=== PATIENT | male | born 1970 | race Caucasian/White ===

== ENCOUNTER 2018-11-27 07:09 | Inpatient (IN) | payer SELFPAY ==
--- NOTE | 2018-11-27 07:54 | EDPHY ---
H & P Stated Complaint: altered mental status Time Seen by Provider: 11/27/18 07:21 HPI/ROS: CHIEF COMPLAINT: "I am hungry and I can't think well" Limitations: Poor historian, history through EMS HISTORY OF PRESENT ILLNESS: 47-year-old male with schizoaffective disorder presents with acute psychosis. A friend called 911 because of increased agitation and paranoia over the past several days. Not taking his usual psychiatric medications. On EMS arrival, rambling speech and tangential thought process present. He was placed on an M1 hold for acute psychosis. Recent URI, resolved. No suicidal or homicidal ideation. Pt declines to answer most questions. REVIEW OF SYSTEMS: Unable to obtain. - Personal History Current Tetanus/Diphtheria Vaccine: Unsure Current Tetanus Diphtheria and Acellular Pertussis (TDAP): Unsure - Medical/Surgical History Other PMH: Schizaffective and bipolar - Social History Smoking Status: Unknown if ever smoked Alcohol Use: Sober Drug Use: None - Physical Exam Exam: General Appearance: Alert, rambling speech, well-appearing Eyes: Pupils equal and round, no conjunctival pallor or injection ENT, Mouth: Mucous membranes moist Neck: Normal inspection Respiratory: Lungs are clear to auscultation Cardiovascular: Regular rate and rhythm Gastrointestinal: Abdomen is soft and nontender Neurological: Alert, nonfocal exam Skin: Warm and dry Extremities: Abrasion left elbow, no swelling Psychiatric: Tangential thought process Constitutional: Initial Vital Signs Blood Pressure 120/78 11/27/18 07:22 O2 Delivery Mode Room Air Allergies/Adverse Reactions: No Known Allergies Allergy (Unverified 11/27/18 07:27) Home Medications: Medication Instructions Recorded NK [No Known Home Meds] 11/27/18 Medical Decision Making ED Course/Re-evaluation: This patient presents on an M1 hold for acute psychosis. Old medical record reviewed; no prior visits at [facility]. Medically cleared for mental health evaluation. 11am: seen by , accepted to 3N by Anibal Kelley for acute psychosis. The patient was calm and cooperative throughout his emergency department stay. Differential Diagnosis: Differential diagnosis includes though it is not limited to suicidal ideation, overdose, acute psychosis, self-injury, alcohol withdrawal. - Data Points Laboratory Results: Laboratory Results 11/27/18 08:35 11/27/18 08:35 11/27/18 11/27/18 11/27/18 09:00 08:35 08:35 WBC 10.38 10^3/uL H 10^3/uL (3.80-9.50) RBC 5.16 10^6/uL 10^6/uL (4.40-6.38) Hgb 15.8 g/dL g/dL (13.7-17.5) Hct 45.3 % % (40.0-51.0) MCV 87.8 fL fL (81.5-99.8) MCH 30.6 pg pg (27.9-34.1) MCHC 34.9 g/dL g/dL (32.4-36.7) RDW 13.2 % % (11.5-15.2) Plt Count 323 10^3/uL 10^3/uL (150-400) MPV 8.2 fL L fL (8.7-11.7) Neut % (Auto) 83.8 % H % (39.3-74.2) Lymph % (Auto) 8.9 % L % (15.0-45.0) Gilliam % (Auto) 6.6 % % (4.5-13.0) Eos % (Auto) 0.1 % L % (0.6-7.6) Baso % (Auto) 0.3 % % (0.3-1.7) Nucleat RBC Rel Count 0.0 % % (0.0-0.2) Absolute Neuts (auto) 8.70 10^3/uL H 10^3/uL (1.70-6.50) Absolute Lymphs (auto) 0.92 10^3/uL L 10^3/uL (1.00-3.00) Absolute Monos (auto) 0.69 10^3/uL 10^3/uL (0.30-0.80) Absolute Eos (auto) 0.01 10^3/uL L 10^3/uL (0.03-0.40) Absolute Basos (auto) 0.03 10^3/uL 10^3/uL (0.02-0.10) Absolute Nucleated RBC 0.00 10^3/uL 10^3/uL (0-0.01) Immature Gran % 0.3 % % (0.0-1.1) Immature Gran # 0.03 10^3/uL 10^3/uL (0.00-0.10) Sodium 137 mEq/L mEq/L (135-145) Potassium 4.5 mEq/L mEq/L (3.5-5.2) Chloride 104 mEq/L mEq/L (97-110) Carbon Dioxide 24 mEq/l mEq/l (22-31) Anion Gap 9 mEq/L mEq/L (6-14) BUN 14 mg/dL mg/dL (7-23) Creatinine 0.8 mg/dL mg/dL (0.7-1.3) Estimated GFR > 60 Glucose 107 mg/dL H mg/dL (70-100) Calcium 9.5 mg/dL mg/dL (8.5-10.4) Urine Opiates Screen NEGATIVE (NEGATIVE) Urine Barbiturates NEGATIVE (NEGATIVE) Ur Phencyclidine Scrn NEGATIVE (NEGATIVE) Ur Amphetamine Screen NEGATIVE (NEGATIVE) U Benzodiazepines Scrn NEGATIVE (NEGATIVE) Urine Cocaine Screen NEGATIVE (NEGATIVE) U Marijuana (THC) Screen NON-NEGATIVE H (NEGATIVE) Ethyl Alcohol < 10 mg/dL mg/dL (0-10) Departure - Departure Disposition: [facility] IP Clinical Impression: Acute psychosis Condition: Fair
[2018-11-27 08:53] LABS: PLATELET COUNT 323 10^3/uL (150-400)
--- NOTE | 2018-11-27 11:07 | GCON ---
[f rep st] CONSULTATION DATE OF CONSULTATION: 11/27/2018 The patient is a 47-year-old gentleman with a history of either bipolar or schizoaffective disorder w latonya was brought to the emergency department by the police after calling a roommate because of agitatio n and paranoia. Upon arrival to the emergency department, he was rambling with tangential speech and he was placed on an M1 hold for acute psychosis. In the emergency department, he did not receive me dications. When I speak with him, he is a bit more calm. He is slightly agitated and a bit rambling but also lo gical and coherent. He complains of a recent viral illness a couple weeks ago with ongoing cough wit hout production of sputum. He is not short of breath. He has apprehension about his lungs. It soun ds like he is an intermittent smoker. Has been a smoker in the past. No nausea, vomiting, diarrhea. No other chronic medical problems. REVIEW OF SYSTEMS: Complete 10-point review of systems conducted, negative except as noted in the HP I. PAST MEDICAL HISTORY: Schizoaffective disorder versus bipolar. ALLERGIES: No known drug allergies. HOME MEDICATIONS: None. SOCIAL HISTORY: Works as a jeweler. His parents live in [place]. He does not drink alcohol to si gnificance. Tobacco as in the HPI. He has positive for marijuana on tox screen. FAMILY HISTORY: Reviewed and unremarkable. PHYSICAL EXAM: VITAL SIGNS: Blood pressure 120/78, pulse in the 70s, breathing about 12 times a min kylie. GENERAL: No acute distress. HEENT: Sclerae anicteric. Oropharynx clear. Mucous membranes a re moist. NECK: Supple. No lymphadenopathy or JVD. LUNGS: Clear to auscultation bilaterally with out focal areas of decreased breath sounds or crackles. He does not have prolonged expiratory phase. HEART: S1, S2. Not tachycardic. ABDOMEN: Soft, nontender, nondistended. LOWER EXTREMITIES: No edema. Calves are nontender. SKIN: Without rash. NEUROLOGIC: Exam is nonfocal. LABS: White count 10.4, hematocrit 45, platelets 323,000. Sodium 137, potassium 4.5, chloride 104, bicarb 24, BUN 14, creatinine 0.8, glucose 107. Tox screen non negative for marijuana, otherwise unr emarkable. I discussed the case with Dr. Emily Tovar. ASSESSMENT/PLAN: 47-year-old gentleman with psychiatric decompensation. 1. Psychiatric decompensation. Management per Behavioral Health. 2. Cough. Patient has clear lungs so likely sequelae of cigarette and/or a viral illness. 3. Leukocytosis. This is mild and often present. Patient presented with decompensation of mental i llness. 4. Tobacco use. Recommend a nicotine patch. 5. Thank you for this consultation. Hospital Medicine will not follow. /[id number]/MODL
--- NOTE | 2018-11-27 12:15 | ASMTTLCEVL ---
TLC Evaluation - Basic Information Evaluation Start Date and 11/27/2018 09:30 AM Time Hospital Status Answers: M1 Hold 72-hr M1 Hold Start Date 11/27/2018 06:24 AM and Time Patient statement Notes: They think Im diabetic. I missed a sleep cycle last night. I have an abrasion on the inside of my left elbow from the police. I wonder if my roommates have been poisoning my food. I havent been doing well since my girlfriend of 8 years left in April. Narrative Notes: Pt is a 47 yo, single, unemployed, male with reported history of schizoaffective disorder-bipolar type and marijuana use, brought to [facility] ED by [employer] on M1 hold which noted: Responded on report of male having psychotic episode. Upon arrival, contacted Marc Fay who was illogical and rambling about god. We learned that Marc was off bipolar medication for an unknown amount of time and consuming marijuana. Marc was taken to [facility] because he is a danger to self. Pts sister, Setffany, had advised pts roommates to call 911 for pt. BAL was zero. UDS results positive for marijuana. Pt denied having any suicidal/homicidal ideation/intent/plans to harm/kill himself or others. Pt appeared thin, unclean and unkempt. This thought process was quite tangential with frequent thought derailment. Pt did not appear to be a reliable historian. Collateral was obtained by talking with his parents, Marylou and Joshua [phone]. Parents reported that pt seemed to be doing okay until the past month and that pt has lately been rewinding back to 5 years ago, has been screaming, blaming them then apologizing. Parents reported that pt has not been on any psychiatric medications, such as [place], for a long time. They reported they have been giving him homeopathics, such as rescue remedy drops. Parents reported that he left their house around 3:30 a.m. this morning. Pts mood appeared labile, ranging from tearfulness when talking about his ex-girlfriend of 8 years leaving him in April, to quickly shifting mood to chuckling inappropriately. He denied having perceptual disturbances or hallucinations, but endorsed some paranoid ideation, thinking that roommates may have poisoning his food. He reported having lost 15 pounds over the past few months. Pt did not appear to be a reliable historian. Diagnosis History Notes: Schizoaffective disorder-bipolar type. Prior suicide attempts Notes: Parents and pt both denied any past history of suicide attempts. Prior hospitalizations Notes: Parents reported that pt was hospitalized at [facility] in 1985 or 1986. Treatment Responses Notes: Not on psychotropic medications for quite awhile. History of violence Notes: Pt denied having any suicidal/homicidal ideation/intent/plans to harm/kill himself or others. Therapist: None. Psychiatrist: None. Medications (name, dosage, route, freq uency) Notes: None. Allergies/Reaction Notes: NKDA. Sleep Notes: Decreased. Appetite Notes: Decreased. Medical/Surgical history Notes: Parents reported pt had past history of a broken collarbone. Substance use history (frequency, intensity, his tory, duration) Notes: Pt reported that he does not consume and does not like alcohol. He reported he first tried marijuana around the age of 14. He reported currently smoking marijuana/CBD oil on a daily basis lately. Pt reported he started smoking cigarettes about 5 months ago but began tapering down over the past week. Pt otherwise denied any other illicit substance use history. BAL was zero. UDS results were positive for marijuana. Family composition Notes: Parents, Marylou and Joshua, remain and live in the area. Pt has one brother, age 49 and two sisters, ages 42 and 40. Need for family Answers: Yes participation in patient's care Family psychiatric/substance abuse history Notes: Pt reported that there was family history of alcoholism on maternal side of family. Developmental history Notes: Pt was born and lived in [place] until age 5 then family moved to [facility] [place]. Parents and pt denied any childhood history of learning challenges or ADHD. Parents and pt denied any childhood history of TBIs, LOC or concussions and denied any childhood history of physical, emotional or sexual abuse/trauma. Abuse concerns Answers: None Marital status/children Notes: Pt is single, never . He had been involved in an 8 year relationship with his ex-girlfriend who left pt in April. They have a 3 yo daughter together who is currently under the care of the mother. Living situation Notes: Pt resides in a rental house with three other roommates. Sexual history/orientation Notes: Not active. Heterosexual. Peer support/family strengths Notes: Pt identified his parents and sister as his primary supports. Pt reported not getting along well lately with his roommates. Education level/history Notes: Pt dropped out of high school during his senior year. He later obtained his GED. Work history Notes: Pt is not currently employed. 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 Pt reported not being able to function very well after his girlfriend left in April in order to sustain work. Notes: None. Legal Notes: Pt reported being arrested one time in the past for skateboarding on the shout[place]. Buddhism/Spiritual Notes: None identified which might impact treatment. Leisure Notes: None identified. Collateral Notes: Per parents. Patient's strengths Answers: Funny/Using Humor (Please select at least TWO strengths): Supportive Family Willingness TLC Evaluation - Mental Status Exam Appearance: Answers: Unclean Unkempt Disheveled Eye Contact: Answers: Good/Direct Mood: Answers: Depressed Labile Sad Affect: Answers: Congruent w/ Mood Expansive Inappropriate Labile Sad Silly Suspicious Tearful Behavior: Answers: Cooperative Crying Erratic Fatigued Guarded Restless Suspicious Talkative Speech: Answers: Relevant Logical Clear Coherent Circumstantial Dramatic Excessive Flight of Ideas Hyperverbal Loose Associations Pressured Rambling Rapid Thought Process: Answers: Disorganized Oriented Alert Circumstantial Flight of Ideas Loose Associations Paranoid Racing Thoughts Tangential Insight: Answers: Fair Judgement: Answers: Fair Manic Signs/Symptoms Answers: Impulsivity Irritability Mood Swings Pressured Speech Racing Thoughts Depression Answers: Crying Spells Signs/Symptoms: Difficulty Concentrating Diminished Pleasure Psychomotor Agitation Sad Mood Hallucinations: Answers: None Delusions: Answers: Paranoid Ideation Current Stage of Change Answers: Precontemplation Pt reported to have Answers: No suicidal/self-injuring ideation/behavior? Pt reported to be making Answers: No suicidal/self-injuring threats? Pt reported to have Answers: No aggression/assault ideation/behavior? Pt reported to be making Answers: No aggression/assault threats? Pt exhibits inability to Answers: No care for self/grave disability? Ideation/behavior is Answers: No chronic? Patient has a specific Answers: No plan? Pt has access to means to Answers: No execute the plan? Ideation involves Answers: No serious/lethal intent? Ideation has Answers: Yes delusional/hallucinatory content? History of Answers: No suicidal/self-injuring ideation, behavior, or threats? History of Answers: No aggressive/assaultive ideation, behavior, or threats? History of serious Answers: No physical harm to self/others while in treatment setting? TLC Evaluation - Suicide/Homicide Risk Suicide Risk Factors: Answers: < 20 or > 40 Years of Age Alcohol/Heavy Drug Use Anhedonia Bipolar Disorder Impulsivity Inadequate Social Support Lack of Buddhism Support Lack of Social Support Lack/Loss of Employment Problems with Partner Psychotic Disorder Schizoaffective Disorder Single Homicide/violence risk Answers: None factors: Current Suicidal Answers: No Ideation? Current Suicidal Ideation Answers: No in the Past 48 Hours? Current Suicidal Ideation Answers: No in the Past Month? Current Suicidal Answers: No Ideation, Worst Ever? Suicide External Answers: Responsibility to Protective Factors: Children Ranking of patient's Answers: Low suicidal risk: Ranking of patient's Answers: Low homicidal risk: TLC Evaluation - Wrap-up AXIS I Diagnosis (include DSM-V and ICD-10 codes), must also be entered in [employer], which is the source of truth. Notes: Schizoaffective Disorder, Bipolar Type 295.70 (F25.0) Cannabis Use Disorder, mild 305.20 (F12.10) In consultation with [facility] ED physician, Jacqueline Tovar MD and on-call advanced psychiatric nurse practitioner, Anibal Kelley APN, both concurred that pt appears to meet 27-65 criteria requiring psychiatric hospitalization as pt appears to be gravely disabled due to a mental illness condition. Pt was read the Patient Rights and Responsibilities Statement on 11/27/18 at 0945 hrs, original placed on chart, and was given photocopy of Rights. Pt signed the Patient Rights. Pt was given the 3[facility] prohibited belongings list while in the ED. Pt unable to complete BDI/BSS questionnaires due to distractibility/luis. Evaluation End Date and 11/27/2018 11:00 AM Time (HH:LJ): Date Signed: 11/27/2018 11:15 AM Electronically Signed By:Remy Marte
--- NOTE | 2018-11-27 13:20 | ASMTTCLDSP ---
TLC Discharge Disposition Disposition: Answers: Admit Disposition Notes: Notes: Admit 3N. Discharge Concerns/Recommendations: Notes: In consultation with [facility] ED physician, Jacqueline Tovar MD and on-call advanced psychiatric nurse practitioner, Anibal Kelley APN, both concurred that pt appears to meet 27-65 criteria requiring psychiatric hospitalization as pt appears to be gravely disabled due to a mental illness condition. Pt was read the Patient Rights and Responsibilities Statement on 11/27/18 at 0945 hrs, original placed on chart, and was given photocopy of Rights. Pt signed the Patient Rights. Pt was given the 3N prohibited belongings list while in the ED. Pt unable to complete BDI/BSS questionnaires due to distractibility/luis. Was patient given the Answers: Yes Inpatient Behavioral Health Prohibited Belongings List while in the ED? For inpatient Anibal Kelley APN admission, the following psychiatrist agreed to accept patient for admission to Behavioral Health ([facility]): Type of Hold: Answers: M1/72-hour Hold Hold initiated by: Answers: Police Date Signed: 11/27/2018 11:16 AM Electronically Signed By:Remy Marte
[2018-11-27] MEDS ORDERED: ACETAMINOPHEN 325 MG TAB PO PRN (14:33)
[2018-11-27] MEDS ORDERED: NICOTINE POLACRILEX 2 MG GUM B PRN (14:33)
[2018-11-27] MEDS ORDERED: OLANZapine DISINTEGR 10 MG TAB PO PRN (14:33)
[2018-11-27] MEDS ORDERED: MAGNESIUM HYDROXIDE 30 ML UDCUP PO PRN (14:33)
[2018-11-27] MEDS ORDERED: LORazepam 0.5 MG TAB PO PRN (14:33)
[2018-11-27] MEDS ORDERED: MAG HYDROX/AL HYDROX/SIMETH 30 ML UDCUP PO PRN (14:33)
--- NOTE | 2018-11-27 15:42 | PDMN ---
Medical Necessity Medical necessity: Pt meets inpt criteria per MD order and [facility] [place] B-014, Schizophrenia Spectrum Disorders, Adult: Inpatient Care, 6 days. 47 y/o w/ reported hx schizoaffective disorder, bipolar type admitted on M1 hold due to risk of harm to self w/schizoaffective disorder, bipolar type, and cannabis use disorder, mild, meeting criteria for inpt psychiatric hospitalization as pt appears to be gravely disabled due to mental illness condition.
[2018-11-28] MEDS: LITHIUM CARBONATE ER 300 MG TAB PO SCH ×2 (08:57→20:24)
--- NOTE | 2018-11-28 09:40 | BAPA ---
[f rep st] ADMISSION PSYCHIATRIC ASSESSMENT DATE OF SERVICE: 11/28/2018 REASON FOR ADMISSION: From the ED note dated 11/27/2018, the patient with history of schizoaffective disorder, presented to the emergency department with acute psychosis. The patient's friend called 911 because of increased agitation and paranoia over the past several days. The patient reportedly not taking his psychiatric medications as prescribed. The patient arrived with rambling speech, tangential thought process. From the [facility] evaluation dated 03/2019, the patient was placed on a 72-hour M1 hold with a start date and time of 11/27/2018, at 6:24 a.m. Patient reported to the [facility] electrolytic de scaler, "They think I'm diabetic. I missed a sleep cycle last night. I have an abrasion on the inside of my left elbow from the police. I wonder if my roommates have been poisoning my food. I haven't been doing well since my girlfriend of 8 years left in April." The patient is a very poor historian provides nonsensical and irrelevant answers to this interviewer's questions. TLC did gain some collateral from the patient's parents during TLC evaluation. The patient's parents reported the patient has been off lithium for a long time. The patient does report to this ORE ROASTER a history of being diagnosed with bipolar disorder. The patient reports using "a lot of pot" prior to this admission. Patient does acknowledge history of luis symptoms and is currently presenting with disorganized thought process, tangential, providing nonsensical answers that are irrelevant to questions asked by this ORE ROASTER. Will continue to gather patient' s history of present illness throughout the course of the patient's hospitalization when patient is more appropriate to answer these questions. PAST PSYCHIATRIC HISTORY: From the [facility] evaluation, the patient has a past diagnosis of schizoaffective disorder, bipolar type. The patient's parents both denied any past history of suicide attempts by patient. Patient's parents reported the patient was hospitalized at [facility] in 1985 or 1986. Parents reported patient has not been on any psychotropic medications for quite a while. The patient denies any suicidal, homicidal thoughts, ideas, or plans. The patient does report a recent history of decreased need for sleep. Will continue to gather patient's past psychiatric history throughout the course of the patient's hospitalization when patient is more appropriate to answer these questions. ALLERGIES: No known allergies. CURRENT MEDICATIONS: 1. Tylenol 650 mg p.o. q.4 hours p.r.n. 2. Axson ER 300 mg p.o. daily. 3. Axson ER 600 mg p.o. at bedtime. 4. Ativan 0.5-1 mg p.o. q.6 hours p.r.n. 5. Maalox syrup 30 mL p.o. q.6 hours p.r.n. 6. Milk of Magnesia 30 mL p.o. daily p.r.n. 7. Nicorette 2 mg q.1 hour p.r.n. 8. Zyprexa Zydis 10 mg p.o. q.4 hours p.r.n. 9. Zyprexa Zydis 10 mg p.o. at bedtime. PAST MEDICAL HISTORY: From the [facility] evaluation, the patient's parents reported patient has a history of a broken collar bone. No other medical or surgical history is reported. Will continue to gather patient's past medical history throughout the course of the patient's hospitalization when patient is more appropriate to answer these questions. SOCIAL HISTORY: The patient's parents are and live in the [place] area. The patient has 1 brother age 49 and 2 sisters, ages 42 and 40. The patient was born in [place], lived there until the age of 5 and then family moved to [facility]. The patient denies any history of childhood learning challenges or ADHD. From the [facility] evaluation, parents and patient denied any childhood history of TBIs, loss of consciousness, or concussions and denied any childhood history of physical, emotional, or sexual abuse or trauma. The patient is single, never . The patient was recently involved in an 8 year relationship with his ex-girlfriend who left the patient in April. They have a 3-year-old daughter together who currently is under the care of the mother. The patient currently resides in a rental house with 3 other roommates. The patient describes his sexual orientation as heterosexual and reports he is currently not sexually active. Patient identified his parents and sister as his primary supports. The patient reports not getting along well with his roommates. The patient reports dropped out of high school during his senior year and later obtained his GED. The patient is currently unemployed. The patient reports unable to function very well after his girlfriend left in April. The patient reports no history of duty. The patient reports history of legal charges as being arrested one time in the past for skateboarding on the [employer]. The patient reports no advent or spiritual practice that may impact his treatment. SUBSTANCE USE HISTORY: The patient reports he does not use alcohol and tried marijuana the first time at the age of 14. The patient reports recent heavy use of marijuana prior to this hospitalization. FAMILY PSYCHIATRIC HISTORY: The patient reports a family history of alcoholism on maternal side of family. ADMISSION LABS AND STUDIES: 1. CBC within normal limits except white blood cells were elevated at 10.38, MPV was low at 8.2, neutrophils elevated at 83.8, lymphocytes low at 8.9, eosinophils low at 0.1, absolute neutrophils elevated at 8.70, absolute lymphocytes low at 0.92 and absolute eosinophils low at 0.01. 2. BMP within normal limits except the glucose is elevated at 107. 3. Hemoglobin A1c within normal limits at 5.9. Liver function within normal limits. Lipid panel within normal limits except LDL cholesterol calculated was elevated at 110. 4. Toxicology screen nonnegative for THC, negative for all the other substances screened and negative for ethyl alcohol. MENTAL STATUS EXAM: The patient is a well-nourished male looking older than stated chronological age. Attire is appropriate. Dress is hospital garb. Grooming status is inappropriate and disheveled. Ambulation is independent. Gait is normal and coordinated. Posture is normal and relaxed. Eye contact is appropriate at times. The patient does, however, avoid eye contact, stares out the window or at the floor. Motor activity is appropriate with purposeful, organized, coordinated movements with no involuntary movements noted. Attitude is fairly cooperative. Patient appears distractible and does not relate well to this interviewer. Language production is spontaneous. Rate at times is hesitant. Latency of response is prolonged. The patient is labile throughout the interview. At times crying and other times laughing. Articulation is clear. The patient reports mood as "okay" with expansive affect that is inappropriate and incongruent with report of mood. The patient's thought process is nonlinear and illogical with loose associations and tangential thought. The patient does not report suicidal or homicidal thoughts, ideas, or plans. The patient denies auditory or visual hallucinations. The patient does report paranoid delusions. The patient does not appear to be attending to internal stimuli. The patient is oriented to person, place, and time. The patient's attention and concentration are poor. Patient's insight and judgment are poor. The patient does not report undesirable side effects from the current medications. DIAGNOSES: Based on the patient's history and current presentation, the patient 's diagnoses are: 1. Schizoaffective disorder, bipolar type. 2. Cannabis use disorder, severe. FORMULATION: The patient is a 47-year-old male, single, unemployed, currently living with roommates in the [facility] who presents to the hospital involuntarily due to being gravely disabled. The patient requires continued inpatient care because of current psychosis and recent crisis that led to this hospitalization. The patient's mood is also currently unstable. The patient presents with problems of acute psychosis, notably paranoia, mood instability that have steadily been increasing over the past several weeks. Patient's life has been affected by these problems including his inability to appropriately care for himself and communicate his basic needs. The patient does have a history of medication nonadherence. The exacerbation of symptoms was likely preceded by patient's nonadherence to medications and heavy cannabis use prior to this hospitalization. The patient has a past psychiatric history of schizoaffective disorder, bipolar type. The patient is a high safety risk due to current acute psychosis and mood instability. Protective factors while hospitalized include ongoing safety checks, active involvement in treatment and support from our treatment team. The patient could benefit from inpatient hospitalization for safety, crisis stabilization, and medication evaluation. PLAN: 1. Medications: After reviewing options, risks, and benefits with the patient, the patient agrees to continue current medications listed above. No other medication changes at this time as more time is needed to determine ongoing tolerability and efficacy. Plan is to continue to observe patient for response and side effects from medications, and ongoing monitoring and evaluation. 2. Review with patient informed consent and recommendations for psychotropic medication treatment listed below 3. Labs: no additional labs at this time 4. Therapy: continue milieu and group therapy 5. Further investigation including gathering information from patients relatives and review of past case records to inform treatment plan. 6. Safety/Wellness plan and follow-up outpatient appointments to be established prior to discharge. Next steps are for patient to meet with body care manager to plan a safe discharge plan and establish outpatient services for ongoing treatment. 7. Confer with inpatient treatment team regarding treatment plan. 8. Address psychosocial stressors by meeting with clinical care leader to establish discharge plan including referrals for outpatient services. 9. Legal status: M1 10. Consider discharge next week if patient is in stable condition, safe, and has a safe discharge plan. 11. Substance abuse interventions: cannabis ESTIMATED LENGTH OF STAY: 5-7 days PSYCHOTROPIC MEDICATION TREATMENT INFORMED CONSENT and RECOMMENDATIONS: Review nature of condition, diagnosis, and prognosis. Review nature and purpose of psychotropic medication treatment. Review type of psychotropic medications being ordered. Review risk and benefits of psychotropic medication treatment. Review probable length of time will need to take medications. Review risk and benefits of not undergoing psychotropic medication treatment. Review alternative treatments to psychotropic medications. Review psychotropic medications contraindications, drug-drug interactions, side effects, and importance of reporting any side effects to a psychiatric provider or nurse during inpatient hospitalization, and upon discharge to patients psychiatric outpatient provider, primary care provider, or other health acute care nurse. Review importance of asking a nurse, psychiatric provider, or primary care provider any questions or problems concerning the psychotropic medications. Verify patient understands the information that has been provided, and understands, accepts, and agrees to psychotropic medications. Review patients safety plan and importance of patient to communicate to staff while hospitalized if patient is ever a danger to self/others, or unable to care for self, and upon discharge, the importance for patient to contact [facility] or [facility], or go to the nearest emergency room, if patient is ever a danger to self/others, or unable to care for self. Recommend that upon discharge patient establish medication management treatment with a psychiatric provider, establishes routine therapy appointments, and follow-up with primary care provider. Verify patient understands and agrees to these recommendations. /[id number]/MODL MTDD
--- NOTE | 2018-11-28 11:21 | ASMTBHMTP ---
Master Treatment Plan Master Treatment Plan Answers: Mood Instability with for: Psychosis Date: 11/28/2018 Diagnosis on Admission: Schizoaffective Disorder, Bipolar Type 295.70 (F25.0) Expected length of stay: 5-7 Reason for admission: Notes: The patient was brought to [facility] ED for psychiatric evaluation by police after responding to a report that the patient was having a psychotic episode. The patient was unable to explain the reason for admission. He stated, "I couldn't afford to eat that much or feed my family. I finally quit eating." The patient is observed laughing out of context and exaggerating facial expressions. Patient's stated presenting problems: Notes: The patient identified several stressors including his mother suffering a heart attack and from his former partner of eight years. The patient reported that both of these events occurred in the past year. The patient reported that he has not been sleeping, he is "overdriven and exhausted." The patient reported increased anxiety; "excessive driving" as possibly catalyst. The patient is employed as a beer maker and ski instructor. He has two children; 3.5 y/o, 17 y/o. Both children are under current care of other parent. Patient's goals for treatment: Notes: The patient denied goals for treatment; stating "I'd like to get back to my goals." The patient mentioned restarting lithium as possible tx. 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 Identify supports outside of hospital: Notes: The patient stated, "I support my self." "I talk to God all day." "Om. Om. Om." Discharge criteria: Notes: Patient will demonstrate more stable mood by discharge. Initial disposition plan/considerations: Notes: The patient intends on "breaking the lease" and "losing the deposit" because his neighbors "are always yelling." Master Treatment Plan Required Signatures Psychiatrist signature: Answers: KATHLEEN Becker: RN on-shift signature: Answers: RN: Patient signature: Answers: Patient: Date Signed: 11/28/2018 11:20 AM Electronically Signed By:Jesusita Carvalho
--- NOTE | 2018-11-28 13:55 | SOAPPROG ---
ZACHARY Progress Note Assessment/Plan: Assessment: Plan: Objective: Vital Signs Temp Pulse Resp BP Pulse Ox 37.1 C 74 14 131/70 H 96 11/28/18 06:00 11/28/18 06:00 11/28/18 06:00 11/28/18 06:00 11/28/18 06:00 Patient moved from [address] [place] [address] location to new location at [facility] by [facility] this morning. Patient was safe through transport, arrived safely, and is currently admitted to [facility] where she will continue psychiatric treatment and care. - Pending Discharge Pending Discharge Within 24 Hours: No Pending Discharge Within 48 Hours: No ICD10 Worksheet Patient Problems: Problems Problem Status Onset Acute psychosis Acute Unspecified psychosis Acute
--- NOTE | 2018-11-28 14:27 | ASMTCMCOM ---
CM Note CM Note Notes: The patient moved from [address] [place] [address] [place] [address] with [facility] Inpatient Behavioral [facility]. The patient didn't have questions or concerns at this time. Date Signed: 11/28/2018 02:25 PM Electronically Signed By:Jesusita Carvalho
[2018-11-28] MEDS: OLANZapine DISINTEGR 10 MG TAB PO SCH ×3 (20:24→21:01)
--- NOTE | 2018-11-29 08:28 | SOAPPROG ---
SOAP Progress Note Assessment/Plan: Assessment: Schizoaffective Disorder, Bipolar Type, Cannabis Use Disorder, Severe. No improvement noted (see subjective/objective note). Patient is not safe to discharge at this time as patient continues to exhibit signs of psychosis ( notably delusions), and express psychosis symptoms. Patient requires continued inpatient care because of current psychosis, and requires inpatient level of care to stabilize in order to no longer be gravely disabled due to mental illness. Patient expresses delusions. Patient exhibits persistent inability to perform essential function due to psychotic condition. Patient is unable to test reality, poor insight into current condition, and poor judgement. Patients support system has inability to manage functional impairment at lower level of care. Patient could benefit from continued inpatient hospitalization for crisis stabilization, safety, and medication evaluation. Plan: 1. Psychotropic medications: After reviewing options, risks, and benefits patient agrees to continue current medications. No other medication changes as more time is needed to determine ongoing tolerability and efficacy. Plan is to continue to observe patient for response and side effects from medications, and ongoing monitoring and evaluation. 2. Review with patient informed consent and recommendations for psychotropic medication treatment listed below 3. Labs: no additional labs at this time 4. Therapy: continue milieu and group therapy 5. Further investigation including gathering information from patients relatives and review of past case records to inform treatment plan. 6. Safety/Wellness plan and follow-up outpatient appointments to be established prior to discharge. Next steps are for patient to meet with healthcare market consultant to plan a safe discharge plan and establish outpatient services for ongoing treatment. 7. Confer with inpatient treatment team regarding treatment plan. 8. Psychosocial stressors addressed through pillowcase turner. 9. Legal status: M1 10. Consider discharge tomorrow if patient is in stable condition, safe, and has a safe discharge plan. 11. Substance abuse interventions: THC PSYCHOTROPIC MEDICATION TREATMENT INFORMED CONSENT and RECOMMENDATIONS: Review nature of condition, diagnosis, and prognosis. Review nature and purpose of psychotropic medication treatment. Review type of psychotropic medications being ordered. Review risk and benefits of psychotropic medication treatment. Review probable length of time patient will need to take medications. Review risk and benefits of not undergoing psychotropic medication treatment. Review alternative treatments to psychotropic medications. Review psychotropic medications contraindications, drug-drug interactions, side effects, and importance of reporting any side effects to a psychiatric provider or nurse during inpatient hospitalization, and upon discharge to patients psychiatric outpatient provider, primary care provider, or other health direct care specialist. Review importance of asking a nurse, psychiatric provider, or primary care provider any questions or problems concerning the psychotropic medications. Verify patient understands the information that has been provided, and understands, accepts, and agrees to psychotropic medications. Review patients safety plan and importance of patient to report to staff while hospitalized if patient is ever a danger to self/others, or unable to care for self, and upon discharge, the importance for patient to contact [facility] or [facility], or go to the nearest emergency room, if patient is ever a danger to self/others, or unable to care for self. Recommend that upon discharge patient establish medication management treatment with a psychiatric provider, establishes routine therapy appointments, and follow-up with primary care provider. Verify patient understands and agrees to these recommendations. 11/29/18 08:31 Subjective: Following up with patient for evaluation of psychosis and safety. Patient reports, "Doing well. Just waking up." Patient reports sleeping well last night, and reports feeling rested this AM. Patient reports taking medications as prescribed, reports no side effects, and agrees to continue current medications. Patient reports poor sleep cycle prior to his admission. Patient reports decreased need for sleep for 3 weeks prior to this admission. Objective: Vital Signs Temp Pulse Resp BP Pulse Ox 36.9 C 61 16 114/73 95 11/29/18 06:00 11/29/18 06:00 11/29/18 06:00 11/29/18 06:00 11/29/18 06:00 MSE: The patient is a well-nourished male looking stated chronological age. Attire is appropriate and dress is casual. Grooming status is appropriate. Ambulation is independent. Gait is normal and coordinated. Posture is normal and relaxed. Eye contact is appropriate. Motor activity is appropriate with purposeful, organized, coordinated movements; with no involuntary movements. Attitude is cooperative. Patient appears distracted and does not relate well to this interviewer. Language production is spontaneous. R/R/V normal. Articulation is clear. Patient reports mood as okay with incongruent and expansive affect. Labile. Patients thought process is non-linear and illogical ; tangential. Patient denies suicidal thoughts, denies homicidal ideation. Patient denies auditory, visual hallucinations. Patient reports paranoid delusions. Patient does not appear to be attending to internal stimuli. Patients attention and concentration are fair. Patient is oriented to person, place. Patients insight and judgment are poor. SUBSTANCE ABUSE BRIEF INTERVENTION: Brief intervention regarding the risks of THC abuse is provided to patient with goal to reduce the risk of harm that could result from the continued use of THC, with the general aim to investigate the problem, raise awareness of problem, develop a solution with the patient, recommend a specific change or activity, and motivate the patient toward change. Assess substance abuse behavior and give supportive advice about harm reduction, recommend a reduction in hazardous/at-risk consumption patterns, and facilitate referrals for additional specialized treatment with critical care physician assistant. Intermediate goal is for the patient to quit and attend outpatient substance abuse treatment. Intervention focus on intermediate goals to allow for more immediate success in the treatment process to keep the patient motivated. Review following with patient: Cannabis use risks: Short- term use: impaired short-term memory, impaired motor coordination, altered judgement, in high doses paranoia and psychosis. Long-term use addiction, diminished life satisfaction and achievement, symptoms of chronic bronchitis, and increased risk of chronic psychosis disorders if predisposition to such disorders. In withdrawal anger, aggression irritability, anxiety and nervousness, decreased appetite or weight loss, restlessness, and sleep difficulties with strange dreams. OUTPATIENT SUBSTANCE ABUSE TREATMENT: Patient referred to outpatient provider and treatment for continued treatment related to substance abuse. - Time Spent With Patient Time Spent With Patient: 15 minutes, met with patient individually. - Pending Discharge Pending Discharge Within 24 Hours: No Pending Discharge Within 48 Hours: No ICD10 Worksheet Patient Problems: Problems Problem Status Onset Acute psychosis Acute Unspecified psychosis Acute
[2018-11-29] MEDS: LITHIUM CARBONATE ER 300 MG TAB PO SCH ×2 (08:47→20:13)
--- NOTE | 2018-11-29 15:45 | ASMTCMCOM ---
CM Note CM Note Notes: The patient participated in clinical treatment team rounds. He was engaged and cooperative. The patient discussed his support system with the team including establishing outpatient providers. The patient was visited by several family members on 11/28/18; the patient reported the visits were successful. Date Signed: 11/29/2018 03:45 PM Electronically Signed By:Jesusita Carvalho
--- NOTE | 2018-11-29 15:47 | ASMTCMCOM ---
CM Note CM Note Notes: The patient initially refused to sign ROIs, MTP, and [employer] forms; he latered signed them during treatment team rounds. Date Signed: 11/29/2018 03:46 PM Electronically Signed By:Jesusita Carvalho
[2018-11-29] MEDS: OLANZapine DISINTEGR 10 MG TAB PO SCH (20:13)
--- NOTE | 2018-11-30 07:53 | SOAPPROG ---
SOAP Progress Note Assessment/Plan: Assessment: Schizoaffective Disorder, Bipolar Type, Cannabis Use Disorder, Severe. Improvement noted (see subjective/objective note). Patient could benefit from continued inpatient hospitalization for crisis stabilization, safety, and medication evaluation. [place] level tomorrow AM; consider discharge after family meeting if stable and has a safe discharge plan. Plan: 1. Psychotropic medications: After reviewing options, risks, and benefits patient agrees to continue current medications. No other medication changes as more time is needed to determine ongoing tolerability and efficacy. Plan is to continue to observe patient for response and side effects from medications, and ongoing monitoring and evaluation. 2. Review with patient informed consent and recommendations for psychotropic medication treatment listed below 3. Labs: lithium level 4. Therapy: continue milieu and group therapy 5. Further investigation including gathering information from patients relatives and review of past case records to inform treatment plan. 6. Safety/Wellness plan and follow-up outpatient appointments to be established prior to discharge. Next steps are for patient to meet with medicare contact specialist to plan a safe discharge plan and establish outpatient services for ongoing treatment. 7. Confer with inpatient treatment team regarding treatment plan. 8. Psychosocial stressors addressed through medical case manager. 9. Legal status: M1 10. Consider discharge tomorrow if patient is in stable condition, safe, and has a safe discharge plan. 11. Substance abuse interventions: THC PSYCHOTROPIC MEDICATION TREATMENT INFORMED CONSENT and RECOMMENDATIONS: Review nature of condition, diagnosis, and prognosis. Review nature and purpose of psychotropic medication treatment. Review type of psychotropic medications being ordered. Review risk and benefits of psychotropic medication treatment. Review probable length of time patient will need to take medications. Review risk and benefits of not undergoing psychotropic medication treatment. Review alternative treatments to psychotropic medications. Review psychotropic medications contraindications, drug-drug interactions, side effects, and importance of reporting any side effects to a psychiatric provider or nurse during inpatient hospitalization, and upon discharge to patients psychiatric outpatient provider, primary care provider, or other health personal care attendant. Review importance of asking a nurse, psychiatric provider, or primary care provider any questions or problems concerning the psychotropic medications. Verify patient understands the information that has been provided, and understands, accepts, and agrees to psychotropic medications. Review patients safety plan and importance of patient to report to staff while hospitalized if patient is ever a danger to self/others, or unable to care for self, and upon discharge, the importance for patient to contact [facility] or [facility], or go to the nearest emergency room, if patient is ever a danger to self/others, or unable to care for self. Recommend that upon discharge patient establish medication management treatment with a psychiatric provider, establishes routine therapy appointments, and follow-up with primary care provider. Verify patient understands and agrees to these recommendations. 11/30/18 07:52 Subjective: Following up with patient for evaluation of psychosis and safety. Patient reports, "Feeling better and sleeping well." Patient reports taking medications as prescribed, reports no side effects, and agrees to continue current medications. Patient agrees to meet with his dad for family meeting prior to discharging tomorrow after lithium level. Objective: Vital Signs Temp Pulse Resp BP Pulse Ox 36.7 C 55 L 16 118/65 95 11/30/18 06:00 11/30/18 06:00 11/30/18 06:00 11/30/18 06:00 11/30/18 06:00 MSE: The patient is a well-nourished male looking stated chronological age. Attire is appropriate and dress is casual. Grooming status is appropriate. Ambulation is independent. Gait is normal and coordinated. Posture is normal and relaxed. Eye contact is appropriate. Motor activity is appropriate with purposeful, organized, coordinated movements; with no involuntary movements. Attitude is cooperative. Patient appears attentive and relates well to this interviewer. Language production is spontaneous. R/R/V normal. Articulation is clear. Patient reports mood as okay with incongruent and expansive affect. Patients thought process is linear and reasonably logical. Patient denies suicidal thoughts, denies homicidal ideation. Patient denies auditory, visual hallucinations. Patient denies delusions. Patient does not appear to be attending to internal stimuli. Patients attention and concentration are fair. Patient is oriented to person, place. Patients insight and judgment are poor. SUBSTANCE ABUSE BRIEF INTERVENTION: Brief intervention regarding the risks of THC abuse is provided to patient with goal to reduce the risk of harm that could result from the continued use of THC, with the general aim to investigate the problem, raise awareness of problem, develop a solution with the patient, recommend a specific change or activity, and motivate the patient toward change. Assess substance abuse behavior and give supportive advice about harm reduction, recommend a reduction in hazardous/at-risk consumption patterns, and facilitate referrals for additional specialized treatment with memory care program director. Intermediate goal is for the patient to quit and attend outpatient substance abuse treatment. Intervention focus on intermediate goals to allow for more immediate success in the treatment process to keep the patient motivated. Review following with patient: Cannabis use risks: Short- term use: impaired short-term memory, impaired motor coordination, altered judgement, in high doses paranoia and psychosis. Long-term use addiction, diminished life satisfaction and achievement, symptoms of chronic bronchitis, and increased risk of chronic psychosis disorders if predisposition to such disorders. In withdrawal anger, aggression irritability, anxiety and nervousness, decreased appetite or weight loss, restlessness, and sleep difficulties with strange dreams. OUTPATIENT SUBSTANCE ABUSE TREATMENT: Patient referred to outpatient provider and treatment for continued treatment related to substance abuse. - Time Spent With Patient Time Spent With Patient: 15 minutes, met with patient individually. - Pending Discharge Pending Discharge Within 24 Hours: Yes Pending Discharge Within 48 Hours: No Pending Discharge Date: 12/01/18 Pending Discharge Time: 11:00 ICD10 Worksheet Patient Problems: Problems Problem Status Onset Acute psychosis Acute Cannabis use disorder, severe, dependence Acute Schizoaffective disorder, bipolar type Chronic
[2018-11-30] MEDS: LITHIUM CARBONATE ER 300 MG TAB PO SCH ×2 (08:22→18:01)
[2018-11-30] MEDS: OLANZapine DISINTEGR 10 MG TAB PO SCH (19:55)
--- NOTE | 2018-12-01 06:11 | BDS ---
[f rep st] BEHAVIORAL HEALTH DISCHARGE SUMMARY REASON FOR ADMISSION: From the ED note dated 11/27/2018, patient with history of schizoaffective disorder, presented to the emergency department with acute psychosis. Patient's friend called 911 due to patient's increased agitation and paranoia over the past several days. Patient reportedly not taking his medications as prescribed. Patient was admitted involuntarily on an M1 hold due to being gravely disabled due to a mental illness. Patient was admitted for safety, crisis stabilization, and medication management. ADMITTING DIAGNOSES: 1. Schizoaffective disorder, bipolar type. 2. Cannabis use disorder, severe. ADMISSION PHYSICAL EXAM: Patient was seen on 11/27/2018 for history and physical consultation for medical clearance for inpatient psychiatric hospitalization and treatment. Patient was medically cleared for inpatient psychiatric hospitalization and treatment. For further details, please refer to consultation note dated 11/27/2018. ADMISSION LABS: 1. CBC within normal limits except white blood cells were elevated at 10.38, MPV was low at 8.2, neutrophils elevated at 83.8, lymphocytes low at 8.9, eosinophils were low at 0.1, absolute neutrophils elevated at 8.70, absolute lymphocytes low at 0.92, absolute eosinophils low at 0.01. 2. BMP within normal limits except glucose is elevated at 107. 3. Hemoglobin A1c within normal limits at 5.9. 4. Liver function within normal limits. 5. Lipid panel within normal limits except LDL cholesterol calculated was elevated at 110. 6. TSH within normal limits at 2.040. 7. Toxicology screen non-negative for THC, negative for all the other substances screened and negative for ethyl alcohol. 8. [place] level 0.5 MAJOR PROCEDURES OR TESTS: None. HOSPITAL COURSE: The most prominent symptoms and behaviors while the patient was here were acute psychosis, notably paranoid delusions. Patient also presented with disorganized thought process and was distractible at time of admission. Treatment modalities utilized were milieu and group therapy. [place] carbonate ER 300 mg p.o. daily and 600 mg p.o. at bedtime was started to target mood symptoms, was tolerated with no report of side effects and good response. Zyprexa 10 mg p.o. at bedtime was started to target psychosis symptoms, was tolerated with no report of side effects and with good response. Patient has improved considerably with no signs of psychiatric symptoms and no psychiatric symptoms expressed. Patient reports he has improved since admission , states to be in stable condition, feels safe to discharge, and he contracts for safety. Patients response to treatment was good. There were no adverse or unexpected results of treatment. The patient was safe throughout stay, active in treatment, engaged in groups, and was appropriate with staff. Patient met with treatment team prior to discharge to assess readiness to discharge and review discharge plan. The treatment team consensus is the patient in stable condition, has a safe discharge plan, and is ready to discharge today. CONDITION AT DISCHARGE: Patient is in stable condition and is no longer a danger to self or others, and is not gravely disabled due to mental illness. Patient is no longer in need of inpatient level of care, and can be safely and effectively treated within the community. The patients level of risk at time of discharge is low. MSE: The patient is casually dressed and with good hygiene , and looks stated age. Patient is sitting, posture is upright, and position is relaxed. Patient appears awake, alert, and responds appropriately and reasonably during interview. Patient is engaged, relates well to interviewer, and emotional facial expression is appropriate to situation and changes appropriately with topic. Patient is cooperative, makes comfortable eye contact , and movements are voluntary, deliberate, coordinated, and smooth and even with no inappropriate movements. Patient makes laryngeal sounds effortlessly and shares conversation appropriately; pace of conversation is appropriate, and stream of talking is fluent; articulation is clear and understandable; word choice is effortless and appropriate for education level; completes sentences, occasionally pausing to think; rate and volume are appropriate for interview and setting. Patient reports mood as euthymic. Patients affect is stable with full variable range, congruent with mood, and appropriate to speech and circumstances. Patient has linear and logical thinking, with no loose associations, tangential thought, thought blocking, concrete thinking, or any other signs of formal thought disorder. Patient denies suicidal and homicidal ideation, and denies hallucinations and delusions. Patient appears to be a reliable historian with sound judgement and good insight into current condition. Patient has no apparent dysfunction in recent or remote memory noted , and no evidence of gross cognitive dysfunction noted at any point during the interview. DISCHARGE DIAGNOSES: 1. Schizoaffective disorder, bipolar type. 2. Cannabis use disorder, severe. CURRENT MEDICATIONS: After reviewing options, risks, and benefits with the patient, patient agrees to continue: 1. [place] carbonate ER 300 mg p.o. daily and 600 mg p.o. at bedtime. 2. Zyprexa 10 mg p.o. at bedtime. Patient requests prescriptions for these medications at time of discharge. Prescriptions for 30 days for each medication are provided. Prescriptions are reviewed with the patient at time of discharge to ensure accuracy and patient understanding. DISPOSITION: Patient left hospital independently and voluntarily with his father after meeting with this DATA REPORT ANALYST and his father for a family meeting. FOLLOWUP: multimedia coordinator reports the appropriate outpatient follow-up services have been established and outpatient appointments have been scheduled. The patient received written instructions with times and dates of outpatient follow-up appointments. The following follow-up recommendations were provided to the patient at discharge: Continue psychotropic medications as prescribed and attend appointments as scheduled. Report any side effects to a psychiatric outpatient provider, a primary care provider, or other health animal caregiver. Address any questions or problems concerning the psychotropic medications with a psychiatric outpatient provider, a primary care provider, or other health animal caregiver. Contact [facility] or [facility], or go to the nearest emergency room, if you are ever a danger to yourself/others, or unable to care for yourself. As soon as possible, establish a routine medication management treatment with a psychiatric provider, establish routine therapy appointments, and follow-up with a primary care provider. SUBSTANCE ABUSE BRIEF INTERVENTION: Brief intervention regarding the risks of cannabis use is provided to patient with goal to reduce the risk of harm that could result from the continued use of cannabis, with the general aim to investigate the problem, raise awareness of problem, develop a solution with the patient, recommend a specific change or activity, and motivate the patient toward change. Assess substance abuse behavior and give supportive advice about harm reduction, recommend a reduction in hazardous/at-risk consumption patterns, and facilitate referrals for additional specialized treatment with day care supervisor. Intermediate goal is for the patient to quit and attend outpatient therapy/treatment. Intervention focus on intermediate goals to allow for more immediate success in the treatment process to keep the patient motivated. Review following with patient: Cannabis use risks: Short-term use: impaired short-term memory, impaired motor coordination, altered judgement, in high doses paranoia and psychosis. Long-term use addiction, diminished life satisfaction and achievement, symptoms of chronic bronchitis, and increased risk of chronic psychosis disorders if predisposition to such disorders. In withdrawal anger, aggression irritability, anxiety and nervousness, decreased appetite or weight loss, restlessness, and sleep difficulties with strange dreams. OUTPATIENT SUBSTANCE ABUSE TREATMENT: Patient referred to outpatient provider and treatment for continued treatment related to substance abuse. LEGAL COURSE: Patient was admitted on an M1 hold for involuntary inpatient psychiatric hospitalization and treatment. Patient discharged today independently and voluntarily. ATTITUDE AT TIME OF DISCHARGE: The patients attitude was positive at time of discharge, and patient reports looking forward to discharging today. The patient reports he feels safe to discharge, is no longer a danger to himself or others, is in stable condition, and contracts for safety. Patient states he will continue medications as prescribed, and establish medication management treatment with an outpatient provider after discharge. Patient reports he understands the information that has been provided to him, and he understands, accepts, and agrees to psychotropic medications. Patient describes internal protective factors as the coping skills he has learned while hospitalized here, and he plans to continue to practice these coping skills after discharge. LABS AND STUDIES: There were no pending labs or studies at time of discharge. ADVANCE DIRECTIVES: There were no advance directives on file, and patient was full code during this hospitalization. The following psychotropic medication treatment informed consent and recommendations were provided to the patient at time of discharge. Patient reports he understands, accepts, and agrees to the information that has been provided. PSYCHOTROPIC MEDICATION TREATMENT INFORMED CONSENT and RECOMMENDATIONS: Review nature of condition, diagnosis, and prognosis. Review nature and purpose of psychotropic medication treatment. Review type of psychotropic medications being prescribed. Review risk and benefits of psychotropic medication treatment. Review probable length of time will need to take medications. Review risk and benefits of not undergoing psychotropic medication treatment. Review alternative treatments to psychotropic medications. Review psychotropic medications contraindications, side effects, and importance of reporting any side effects to a psychiatric provider, primary care provider, or other health animal caregiver. Review importance of asking a psychiatric provider or primary care provider any questions or problems concerning the psychotropic medications. Review safety plan and the importance to contact [facility] or [facility] , or go to the nearest emergency room, if ever a danger to yourself/others, or unable to care for yourself. Recommend upon discharge to establish routine medication management treatment with a psychiatric provider, establish routine therapy appointments, and follow-up with a primary care provider. Verify patient understands, accepts, and agrees to the information that has been provided. /[id number]/MODL MTDD
[2018-12-01 06:52] VITALS: BP 115/73
[2018-12-01] MEDS: LITHIUM CARBONATE ER 300 MG TAB PO SCH (12:20)
--- NOTE | 2018-12-01 12:28 | ASMTBHDC ---
Notes Note: Notes: Pt. reports feeling "pretty groggy". Pt. stated he is getting enough to eat and is attending "bunch of them" groups. Pt. reports he slept "like a rock". Pt. reports noticing "subtle" side effects with his medications, adding they are not distressing side effects. Pt. asked about taking Zyprexa and using heavy machinery. Pt. stated the lithium is "working very quickly", adding "that's my magic [lithium]". Pt. stated the Zyprexa is "very sedating", adding he is "not used to taking medications at night". Pt. reports no issues while on the unit. Pt. stated he has " lot to reorganize" adding he is "sure lost two jobs in last few days". Pt. stated he is not returning to his rental in [facility], adding he plans to stay with his parents in [place]. Pt. stated he is worried about focusing too much on caring for his parents while living with them. Pt. denied SI, HI, AVH and paranoia. Pt. requested a doctor's letter. Pt. presents as alert, talkative, friendly, mostly groomed, and cooperative. Staff report pt. sleeping 6.5 hours and being medication compliant. Pt. has follow up appointment with [facility] on 12/04/18 at 9:00am at [employer], with services in [place]. Date Signed: 12/01/2018 12:27 PM Electronically Signed By:Yesenia Bella
--- NOTE | 2018-12-01 12:39 | ASMTBHDC ---
Notes Note: Notes: The patient participated in clinical treatment team rounds, as well as, a family meeting with the patient's father and the provider. He was engaged and appropriate. The team discussed with the patient his discharge plan including medication management and education. The patient stated, "I'm back. I was really out there." "I can see luis coming, I had asked my roommates to support me by not assigning me extra chores. It happens every Spring." I'm able to tell because I'm on a different vibratory rate than them." Date Signed: 12/01/2018 12:39 PM Electronically Signed By:Jesusita Carvalho
== END 2018-12-01 13:45 | disposition home or self-care (01) | DRG 885 ==
LOC: EDUNIT# → BBEH 14:20
PROVIDERS: ADMIT Registered Nurse; ATTEND Registered Nurse
DX: F25.0 Schizoaffective disorder, bipolar type (principal); F12.959 Cannabis use, unspecified with psychotic disorder, unspecified; Z72.0 Tobacco use
CPT/HCPCS: 80305; G0480